=== PATIENT | male | born 1940 | race Caucasian/White ===

== ENCOUNTER 2019-03-19 09:57 | Observation (INO) | payer MEDICARE ==
[2019-03-19] MEDS ORDERED: Sodium Chloride 0.9% 10 ML Syringe FLUSH PRN (11:08)
[2019-03-19] MEDS ORDERED: Diltiazem 125 MG in Sodium Chloride 0.9% 100 ML IV SCH (11:15)
[2019-03-19] MEDS ORDERED: Sodium Chloride 0.9% 1,000 ML IV SCH (11:15)
[2019-03-19] MEDS ORDERED: Diltiazem 25 MG/5 ML SDV IVPUSH ONE (11:17)
[2019-03-19] MEDS ORDERED: Iopamidol 755 Mg/ML 75 ML Bottle IV ONE (12:56)
--- NOTE | 2019-03-19 12:58 | EDM.PDOC ---
ED HPI GENERAL MEDICAL PROBLEM - General Chief Complaint: Cardiovascular Problem Stated Complaint: short of breath, fatigue Time Seen by Provider: 03/19/19 10:10 Source of Information: Reports: Patient History Limitations: Reports: No Limitations - History of Present Illness INITIAL COMMENTS - FREE TEXT/NARRATIVE: patient an echo lab this morning and heart rate noted to be 150 by vtc technician. Sent here for further evaluation very pleasant 78-year-old male who presents with concern for fatigue and dyspnea on exertion as well as some slight shortness of breath over the past 3 weeks. He reports that his symptoms actually seemed to start around [place] with some shortness of breath on exertion, and he changed his filter in his cabin and found her to have a lot of mold in it. He states that after this he seemed to feel better for quite a while. 3 weeks ago he had an upper respiratory tract infection, took some [id number] medications and no symptoms seem to have resolved, however he is still felt very fatigued. Yesterday he was trying to mow his lawn and he was unable to continue, had to keep stopping to rest. he also notes new onset edema in his lower extremities over the past week. he was seen in the [facility] one week ago and his heart rate was noted to be "fast" he states in the 90s. He was started on Lasix 20 mg once per day at that time due to swelling in his legs. He tells me that no labs were drawn there. He was scheduled for an echocardiogram today and then was sent here when his rate was found to be elevated. Past medical history is significant for a cardiac bypass surgery 18 years ago. He has not seen a doctor in 5 years and just takes occasional indomethacin for gout, which seemed to be worse over the last week. He is a former smoker, but quit many years ago. Occasional social alcohol, no other drug use. He denies any other symptoms besides those noted above, no chest pain, no cough , no nausea, vomiting or diarrhea, no numbness or tingling in his extremities, no headache or changes in vision. - Related Data Allergies Allergy/AdvReac Type Severity Reaction Status Date / Time latex Allergy Hives Verified 03/19/19 10:04 Home Meds: Home Meds Furosemide 20 mg PO BID 03/19/19 [History] Indomethacin 50 mg PO DAILY PRN 03/19/19 [History] Past Medical History HEENT History: Reports: Other (See Below) Other HEENT History: states that he floaters at night. Cardiovascular History: Reports: Bypass, Other (See Below) Other Cardiovascular History: on lasix for about 1 1/2 week. Respiratory History: Reports: SOB, Other (See Below) Other Respiratory History: upon exertion since august of last year. 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 ED EXAM, GENERAL - Physical Exam Exam: See Below Free Text/Narrative:: general: Alert, very pleasant in no acute distress. head atraumatic. throat moist. Neck supple. Heart is tachycardic, no obvious murmur. Lungs have slightly decreased sounds in bases but no anne wheezes or crackles. Abdomen positive bowel sounds, soft and nontender. ?distended but hard to tell on first meeting. Peripheral pulses +2 in both the upper and lower extremity's. There is bilateral lower extremity edema. He has equal strength in his arms and legs bilaterally and his gait is normal. Skin has no obvious lesions or rashes. EKG INTERPRETATION Rhythm: A-Flutter ST-T: Normal Comparison: NA - No Prior EKG Course - Vital Signs Text/Narrative:: Initial EKG shows atrial flutter with 2-1 conduction, rate between 130 and 150 on the monitor. Patient is otherwise asymptomatic, with normal blood pressure. Will get labs. Cardizem drip ordered - rate came down after bolus. Likely will need admission for new onset aflutter. Last Recorded V/S: Last Vital Signs Temp 36.7 C 03/19/19 09:57 Pulse 96 03/19/19 11:36 Resp 18 03/19/19 11:36 BP 113/87 03/19/19 11:36 Pulse Ox 100 03/19/19 11:36 - Orders/Labs/Meds Orders: Active Orders 24 hr Category Date Time Status EKG Documentation Completion [RC] ASDIRECTED Care 03/19/19 10:52 Active Ang Chest [CT] Stat Exams 03/19/19 12:52 Taken Diltiazem 125 mg Med 03/19/19 11:15 Active Sodium Chloride 0.9% [Normal Saline] 100 ml IV TITRATE Sodium Chloride 0.9% [Normal Saline] 1,000 ml Med 03/19/19 11:15 Active IV ASDIRECTED Sodium Chloride 0.9% [Saline Flush] Med 03/19/19 11:08 Active 10 ml FLUSH ASDIRECTED PRN Saline Lock Insert [OM.PC] Routine Oth 03/19/19 11:08 Ordered EKG 12 Lead [EK] Routine Ther 03/19/19 09:50 Ordered Medication Orders Diltiazem HCl 125 mg/ Sodium (Chloride) 125 mls @ 5 mls/hr IV TITRATE GURDEEP; Protocol Last Admin: 03/19/19 11:32 Dose: 5 mg/hr, 5 mls/hr Sodium Chloride (Normal Saline) 1,000 mls @ 150 mls/hr IV ASDIRECTED GURDEEP Last Admin: 03/19/19 11:28 Dose: 150 mls/hr Sodium Chloride (Saline Flush) 10 ml FLUSH ASDIRECTED PRN PRN Reason: Keep Vein Open Labs: Laboratory Tests 03/19/19 03/19/19 03/19/19 Range/Units 10:15 10:15 10:15 WBC 9.1 (4.5-12.0) X10-3/uL RBC 4.77 (4.30-5.75) x10(6)uL Hgb 13.5 (13.5-17.8) g/dL Hct 39.4 (30.0-51.3) % MCV 82.6 (80-96) fL MCH 28.2 (27.7-33.6) pg MCHC 34.2 (32.2-35.4) g/dL RDW 14.4 (11.5-15.5) % Plt Count 145 (125-369) X10(3)uL MPV 9.2 (7.4-10.4) fL Neut % (Auto) 81.2 (46-82) % Lymph % (Auto) 11.2 L (13-37) % [place] % (Auto) 5.8 (4-12) % Eos % (Auto) 2 (1.0-5.0) % Baso % (Auto) 0 (0-2) % Neut # (Auto) 7.5 (1.6-8.3) # Lymph # (Auto) 1.0 (0.6-5.0) # [place] # (Auto) 0.5 (0.0-1.3) # Eos # (Auto) 0.1 (0.0-0.8) # Baso # (Auto) 0.0 (0.0-0.2) # Sodium 142 (135-145) mmol/L Potassium 4.6 (3.5-5.3) mmol/L Chloride 105 (100-110) mmol/L Carbon Dioxide 26 (21-32) mmol/L BUN 36 H (7-18) mg/dL Creatinine 1.5 H (0.70-1.30) mg/dL Est Cr Clr Drug Dosing 39.93 mL/min Estimated GFR (MDRD) 45 L (>60) BUN/Creatinine Ratio 24.0 H (9-20) Glucose 91 (80-116) mg/dL Calcium 9.2 (8.6-10.2) mg/dL Magnesium 2.0 (1.8-2.5) mg/dL Total Bilirubin 2.0 H (0.1-1.3) mg/dL AST 20 (5-25) IU/L ALT 24 (12-36) U/L Alkaline Phosphatase 68 (56-112) IU/L Troponin I < 0.017 L (<0.017-0.056) ng/mL Total Protein 7.0 (6.0-8.0) g/dL Albumin 3.6 (3.2-4.6) g/dL Globulin 3.4 g/dL Albumin/Globulin Ratio 1.1 Meds: Medications Generic Name Dose Route Start Last Admin Trade Name Freq PRN Reason Stop Dose Admin Diltiazem HCl 125 mg/ Sodium 125 mls @ 5 mls/hr 03/19/19 11:15 03/19/19 11:32 Chloride IV 5 mg/hr TITRATE GURDEEP 5 mls/hr Administration Protocol 5 MG/HR Sodium Chloride 1,000 mls @ 150 mls/hr 03/19/19 11:15 03/19/19 11:28 Normal Saline IV 150 mls/hr ASDIRECTED GURDEEP Administration Sodium Chloride 10 ml 03/19/19 11:08 Saline Flush FLUSH ASDIRECTED PRN Keep Vein Open Discontinued Medications Generic Name Dose Route Start Last Admin Trade Name [place] PRN Reason Stop Dose Admin Diltiazem HCl 10 mg 03/19/19 11:17 03/19/19 11:27 Diltiazem IVPUSH 03/19/19 11:18 10 mg ONETIME ONE Administration Iopamidol 75 ml 03/19/19 12:56 03/19/19 13:31 Isovue-370 (76%) IV 03/19/19 12:57 75 ml ASDIRECTED ONE Administration - Re-Assessments/Exams Free Text/Narrative Re-Assessment/Exam: labs reviewed, creatinine elevated at 1.5, no previous comparison. Discussed with hospitalist dr Chadwick, who accepts for admission. Call received from hydrometeorologist, ECHO this morning shows globally reduced function, EF 20%. + mitral regurgitation, tricuspid regurgitation, moderate pulmonary hypertension. Dr Chadwick updated, will get CT angiogram to r/o pulmonary embolism, and patient to transfer to floor. Free Text/Narrative Re-Assessment/Exam: Dr Marcial called regarding CT angiogram, no pulmonary embolism, enlarged, heart, interstitial edema, and abdominal ascites. Report to follow Departure - Departure Time of Disposition: 13:40 Disposition: Refer to Observation Clinical Impression: Atrial flutter, CHF (congestive heart failure) - Discharge Information *PRESCRIPTION DRUG MONITORING PROGRAM REVIEWED*: Not Applicable *COPY OF PRESCRIPTION DRUG MONITORING REPORT IN PATIENT ARCELIA: Not Applicable - My Orders Last 24 Hours: My Active Orders 03/19/19 09:50 EKG 12 Lead [EK] Routine 03/19/19 10:52 EKG Documentation Completion [RC] ASDIRECTED 03/19/19 11:08 Sodium Chloride 0.9% [Saline Flush] 10 ml FLUSH ASDIRECTED PRN Saline Lock Insert [OM.PC] Routine 03/19/19 11:15 Diltiazem 125 mg Sodium Chloride 0.9% [Normal Saline] 100 ml IV TITRATE Sodium Chloride 0.9% [Normal Saline] 1,000 ml IV ASDIRECTED 03/19/19 12:52 Ang Chest [CT] Stat - Assessment/Plan Last 24 Hours: My Active Orders 03/19/19 09:50 EKG 12 Lead [EK] Routine 03/19/19 10:52 EKG Documentation Completion [RC] ASDIRECTED 03/19/19 11:08 Sodium Chloride 0.9% [Saline Flush] 10 ml FLUSH ASDIRECTED PRN Saline Lock Insert [OM.PC] Routine 03/19/19 11:15 Diltiazem 125 mg Sodium Chloride 0.9% [Normal Saline] 100 ml IV TITRATE Sodium Chloride 0.9% [Normal Saline] 1,000 ml IV ASDIRECTED 03/19/19 12:52 Ang Chest [CT] Stat
--- NOTE | 2019-03-19 15:03 | PCM.HP ---
H&P History of Present Illness - General Date of Service: 03/19/19 Admit Problem/Dx: Admission Diagnosis/Problem Admission Diagnosis/Problem Atrial flutter with rapid ventricular response Source of Information: Patient History Limitations: Reports: No Limitations - History of Present Illness Initial Comments - Free Text/Narative: Patient was seen last week by [facility] for shortness of breath, peripheral edema. He was started on Lasix last week and set up for an Echo today. During his echocardiogram tech noted heart rate of 150s so he was sent to the ER. He was evaluated by Dr Stone and found to be in atrial flutter/ fibrillation on EKG, Echo report shows ejection fraction of 20%, moderate-to- severe mitral & tricuspid regurgitation along with pulmonary hypertension of 54 mmHG, Dr Stone ordered CT Angio to rule out pulmonary embolism and initial report showed enlarged heart, interstitial edema and abdominal ascites but no pulmonary embolism. He denies any loss of weight, actually gained 10 lbs; no night sweats, loss of appetite, abdominal pain, chest pain. No black or bloody stools. No jaundice. No hematuria or change in bladder habits. He had a CABG about 18 years ago at [facility] in [place]. He followed with a solar sales ambassador for a few years after that but then has been seeing his primary doctor since then. He usually sees Dr Marie or Caitlyn Rosas at [facility]. - Related Data Allergies/Adverse Reactions: Allergies Allergy/AdvReac Type Severity Reaction Status Date / Time latex Allergy Hives Verified 03/19/19 10:04 Home Medications: Home Meds Furosemide 20 mg PO BID 03/19/19 [History] Indomethacin 50 mg PO DAILY PRN 03/19/19 [History] Past Medical History HEENT History: Reports: Other (See Below) Other HEENT History: states that he floaters at night. Cardiovascular History: Reports: Bypass, Other (See Below) Other Cardiovascular History: on lasix for about 1 1/2 week. Respiratory History: Reports: SOB, Other (See Below) Other Respiratory History: upon exertion since august of last year. Musculoskeletal History: Reports: Gout Social & Family History - Family History Family Medical History: Noncontributory - Tobacco Use Smoking Status *Q: Former Smoker Used Tobacco, but Quit: Yes Month/Year Tobacco Last Used: 25 years ago Second Hand Smoke Exposure: No - Caffeine Use Caffeine Use: Reports: Coffee, Soda - Recreational Drug Use Recreational Drug Use: No H&P Review of Systems - Review of Systems: Review Of Systems: See Below General: Reports: No Symptoms Pulmonary: Denies: Shortness of Breath, Wheezing Cardiovascular: Reports: Palpitations, Edema. Denies: Chest Pain, Lightheadedness Gastrointestinal: Reports: Distension. Denies: Abdominal Pain, Black Stool, Bloody Stool, Constipation, Diarrhea, Decreased Appetite, Nausea, Vomiting Genitourinary: Denies: Dysuria, Pain, Incontinence, Hematuria, Retention Skin: Denies: Jaundice Hematologic/Lymphatic: Reports: Easy Bruising. Denies: Anemia, Easy Bleeding Exam - Exam Exam: See Below - Vital Signs Vital Signs: Last Vital Signs Temp 36.7 C 03/19/19 09:57 Pulse 96 03/19/19 11:36 Resp 18 03/19/19 11:36 BP 113/87 03/19/19 11:36 Pulse Ox 100 03/19/19 11:36 Weight: 90.718 kg - Exam General: Alert, Oriented, Cooperative HEENT: PERRLA, EOMI, Hearing Intact, Mucosa Moist & [place]. No: Scleral Icterus Neck: Supple, Trachea Midline Lungs: Clear to Auscultation, Normal Respiratory Effort Cardiovascular: Irregular Rhythm, Diastolic Murmur GI/Abdominal Exam: Normal Bowel Sounds, Soft, Non-Tender, Distended, Other ( unable to assess for organomegaly due to distention, tympanic on percussion). No: Guarding, Rigid, Rebound, Tender Extremities: Pedal Edema (2+) Peripheral Pulses: 2+: Posterior Tibial (L), Posterior Tibial (R), Dorsalis Pedis (L), Dorsalis Pedis (R) Skin: Warm, Dry, Rash (stasis dermatitis on BLE) - Patient Data Lab Results Last 24 hrs: Laboratory Results - last 24 hr 03/19/19 03/19/19 03/19/19 Range/Units 10:15 10:15 10:15 WBC 9.1 (4.5-12.0) X10-3/uL RBC 4.77 (4.30-5.75) x10(6)uL Hgb 13.5 (13.5-17.8) g/dL Hct 39.4 (30.0-51.3) % MCV 82.6 (80-96) fL MCH 28.2 (27.7-33.6) pg MCHC 34.2 (32.2-35.4) g/dL RDW 14.4 (11.5-15.5) % Plt Count 145 (125-369) X10(3)uL MPV 9.2 (7.4-10.4) fL Neut % (Auto) 81.2 (46-82) % Lymph % (Auto) 11.2 L (13-37) % [place] % (Auto) 5.8 (4-12) % Eos % (Auto) 2 (1.0-5.0) % Baso % (Auto) 0 (0-2) % Neut # (Auto) 7.5 (1.6-8.3) # Lymph # (Auto) 1.0 (0.6-5.0) # [place] # (Auto) 0.5 (0.0-1.3) # Eos # (Auto) 0.1 (0.0-0.8) # Baso # (Auto) 0.0 (0.0-0.2) # Sodium 142 (135-145) mmol/L Potassium 4.6 (3.5-5.3) mmol/L Chloride 105 (100-110) mmol/L Carbon Dioxide 26 (21-32) mmol/L BUN 36 H (7-18) mg/dL Creatinine 1.5 H (0.70-1.30) mg/dL Est Cr Clr Drug Dosing 39.93 mL/min Estimated GFR (MDRD) 45 L (>60) BUN/Creatinine Ratio 24.0 H (9-20) Glucose 91 (80-116) mg/dL Calcium 9.2 (8.6-10.2) mg/dL Magnesium 2.0 (1.8-2.5) mg/dL Total Bilirubin 2.0 H (0.1-1.3) mg/dL AST 20 (5-25) IU/L ALT 24 (12-36) U/L Alkaline Phosphatase 68 (56-112) IU/L Troponin I < 0.017 L (<0.017-0.056) ng/mL Total Protein 7.0 (6.0-8.0) g/dL Albumin 3.6 (3.2-4.6) g/dL Globulin 3.4 g/dL Albumin/Globulin Ratio 1.1 Result Diagrams: 03/19/19 10:15 03/19/19 10:15 Imaging Impressions Last 24 hrs: U/S report in scanned documents: showed EF of 20%, [id number] mitral & tricuspid regurgitation, pulmonary hypertension at 54 mmHg. CTA chest: enlarged heart, interstitial edema and abdominal ascites but no pulmonary emboli. CT abdomen/pelvis: pending. EKG INTERPRETATION EKG Date: 03/19/19 Time: 09:50 Rhythm: A-Flutter Rate (Beats/Min): 130 [place]: LAD-Left [place] Deviation P-Wave: Variable QRS: Normal ST-T: Depressed (V6) QT: Prolonged (518) Comparison: NA - No Prior EKG *Q Meaningful Use (ADM) - VTE *Q VTE Mechanical Contraindications *Q: Congestive Heart Failure - VTE Risk Assess *Q Each Risk Factor Represents 1 Point: Swollen Legs, Current, Congestive heart failure (CHF) Total Score 1 Point Risk Factors: 2 Each Risk Factor Represents 3 Points: Age 75 Years or Greater Total Score 3 Point Risk Factors: 3 Each Risk Factor Represents 5 Points: None Total Score 5 Point Risk Factors: 0 - Problem List (1) Atrial flutter SNOMED Code(s): 2359690 ICD Code: I48.92 - UNSPECIFIED ATRIAL FLUTTER Status: Acute Current Visit : Yes (2) CHF (congestive heart failure) SNOMED Code(s): 04156071 ICD Code: I50.9 - HEART FAILURE, UNSPECIFIED Status: Acute Current Visit : Yes (3) Ascites SNOMED Code(s): 048897644 ICD Code: R18.8 - OTHER ASCITES Status: Acute Current Visit: Yes (4) Pulmonary hypertension SNOMED Code(s): 24215268 ICD Code: I27.20 - PULMONARY HYPERTENSION, UNSPECIFIED Status: Acute Current Visit: Yes (5) Mitral regurgitation SNOMED Code(s): 50568604 ICD Code: I34.0 - NONRHEUMATIC MITRAL (VALVE) INSUFFICIENCY Status: Acute Current Visit: Yes (6) Tricuspid valve regurgitation Status: Acute Current Visit: Yes Problem List Initiated/Reviewed/Updated: Yes Orders Last 24hrs: Active Orders 24 hr Category Date Time Status Patient Status [ADT] Routine ADT 03/19/19 12:56 Active Cardiac Monitoring [RC] .As Directed Care 03/19/19 13:49 Active EKG Documentation Completion [RC] ASDIRECTED Care 03/19/19 10:52 Active Oxygen Therapy [RC] PRN Care 03/19/19 12:56 Active Up ad Pam [RC] ASDIRECTED Care 03/19/19 12:55 Active VTE/DVT Education [RC] Per Unit Routine Care 03/19/19 12:56 Active Vital Signs [RC] Q4H Care 03/19/19 12:56 Active Heart Healthy Diet [DIET] Diet 03/19/19 Breakfast Active Ang Chest [CT] Stat Exams 03/19/19 12:52 Taken CTA Abd Pelv w Cont [CT] Routine Exams 03/19/19 14:56 Ordered Diltiazem [Cardizem CD] Med 03/19/19 15:00 Ordered 120 mg PO DAILY Furosemide [Lasix] Med 03/19/19 21:00 Ordered 20 mg PO BID Sodium Chloride 0.9% [Normal Saline] 1,000 ml Med 03/19/19 11:15 Active IV ASDIRECTED Sodium Chloride 0.9% [Saline Flush] Med 03/19/19 11:08 Active 10 ml FLUSH ASDIRECTED PRN Saline Lock Insert [OM.PC] Routine Oth 03/19/19 11:08 Ordered Resuscitation Status Routine Resus Stat 03/19/19 12:55 Ordered EKG 12 Lead [EK] Routine Ther 03/19/19 09:50 Ordered Medication Orders Diltiazem HCl (Cardizem Cd) 120 mg PO DAILY GURDEEP Furosemide (Lasix) 20 mg PO BIDDIURETIC GURDEEP Sodium Chloride (Normal Saline) 1,000 mls @ 150 mls/hr IV ASDIRECTED GURDEEP Last Admin: 03/19/19 11:28 Dose: 150 mls/hr Sodium Chloride (Saline Flush) 10 ml FLUSH ASDIRECTED PRN PRN Reason: Keep Vein Open Assessment/Plan Comment:: 1. Admit for observation for atrial flutter. 2. Was started on Cardizem drip in ER, rate slowed into the 80s/90s so converted him to oral Cardizem CD 120 mg daily once he reached the floor. 3. CT abdomen/pelvis to evaluate abdominal ascites which are new, most likely secondary to his heart failure. 4. Severe CHF with ejection fraction of 20%, will refer to cardiology as outpatient for further assessment of ICD placement. Restarted Furosemide and will recheck labs in the am. Daily weights. 5. Lovenox 30 mg IV q24h DVT prophylaxis. 6. Full code status.
--- NOTE | 2019-03-19 15:05 | CT ---
INDICATION: Elevated heart rate, poor left ventricular function, question PE. COMPUTERIZED TOMOGRAPHY ANGIOGRAPHY OF THE CHEST WITH CONTRAST: Spiral 1.25 mm axial sections were obtained through the chest with 75 mL Isovue 370 at 3 mL/ second with sagittal and coronal reconstructions, 03/19/19 - no comparisons. Total exam DLP = 799.34 mGy-cm. Calcifications are noted in the brachiocephalic vessels, arch of the aorta, and extensively in coronary arteries. The heart appeared enlarged. No pericardial effusion was seen. Mediastinal lymphadenopathy is moderate and may be reactive to infection but should be correlated clinically. No mediastinal masses were identified. Small to moderate sized bilateral pleural effusions were noted. The effusion on the right is larger. Extensive abdominal ascites is noted. Calcifications are noted in the abdominal aorta, splenic, celiac, and superior mesenteric arteries. There is some minimal subpleural infiltration at both lung bases, right greater than left, which could represent very minimal pneumonia and/or fibrosis. Additionally, there appears to be some minimal pulmonary vascular congestion that is noted on the coronal images. No evidence of pulmonary emboli could be identified. No definite consolidating pneumonia was identified. IMPRESSION: 1. Findings suggest CHF with interstitial lung edema and bilateral pleural effusions. Minimal superimposed bibasilar pneumonia is difficult to exclude. 2. Prominent abdominal ascites. 3. ASHD with cardiomegaly. 4. ASD. 5. Mediastinal lymphadenopathy, which is moderate and nonspecific. 6. Post median sternotomy with findings compatible with CABG surgery. Report was called to Dr. Stone at 1353 hours on 03/19/19. [facility]
[2019-03-19] MEDS: Diltiazem 120 MG Cap.CD PO SCH (15:56)
--- NOTE | 2019-03-19 16:23 | CT ---
INDICATION: Abdominal ascites, new CHF. CT ABDOMEN AND PELVIS WITHOUT CONTRAST: Spiral 2.5 mm axial sections were obtained through the abdomen and pelvis with sagittal and coronal reconstructions - no contrast utilized, 03/19/19 - no comparison CT of the abdomen and pelvis. Total exam DLP = 1,460.02 mGy-cm. The liver appeared normal in density. Bilateral abdominal and pelvic ascites is noted. The gallbladder and appendix are absent, compatible with history of cholecystectomy and appendectomy. No intrahepatic ductal dilatation was seen. The common bile duct appeared to be normal in caliber. There is a moderate degree of fatty replacement of the pancreas. The spleen had a normal appearance. The adrenal glands appeared normal. Contrast is noted minimally in the kidneys and definitely in the collecting systems with CT urograms as visualized appearing normal. No definite renal mass was identified. There is some mild renal fascial thickening, suggesting renal cortical scarring of mild degree. There appears to be pseudo-diverticulation of the urinary bladder, likely due to obstruction at the level of the prostate, which is somewhat prominent and impinges on the floor of the bladder moderately. Numerous outpouchings are noted posteriorly at the posterior half of the urinary bladder. No ventral hernia was seen. There is increased density of the soft tissues, compatible with CHF and possibly representing anasarca. No definite retroperitoneal mass was seen. Retroperitoneal lymphadenopathy is minimal and nonspecific. Calcifications are noted in the abdominal aorta, splenic artery, superior mesenteric artery, renal arteries proximally, and iliac and femoral arteries. No evidence of aneurysmal dilatation of the aorta was seen. There is, however, noted moderate dilatation of the left common iliac artery with an appearance raising question of dissection, well visualized on coronal image #79 and on multiple axial images from #119 to #127. No evidence of free air or bowel obstruction was seen. Hypertrophic degenerative changes and disk disease are noted at L2 through S1 with vacuum disk phenomena at those levels, as well as hypertrophic degenerative changes off vertebral bodies mostly anteriorly but also posteriorly and laterally with some impingement on neural foramina suggested. No additional organomegaly or mass lesions were identified in the abdomen or pelvis. IMPRESSION: 1. Prominent abdominal and pelvic ascites. 2. 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 3. Appearance of multiple diverticula is seen in the posterior urinary bladder , which could be on the basis of pseudo-diverticulation with obstruction to bladder outflow at the level of the prostate - correlate clinically. 4. Degenerative changes and disk disease L2 through S1. 5. Post cholecystectomy. 6. Post appendectomy. 7. Mild renal cortical scarring. MTDD
[2019-03-19] MEDS ORDERED: Enoxaparin 30 MG/0.3 ML Syringe SUBCUT SCH (16:45)
[2019-03-19] MEDS: Furosemide 20 MG Tab PO SCH (18:15)
[2019-03-20] MEDS ORDERED: hydrOXYzine HCl 25 MG Tab PO PRN (00:55)
[2019-03-20] MEDS: Diltiazem 120 MG Cap.CD PO SCH (09:04)
[2019-03-20] MEDS: Furosemide 20 MG Tab PO SCH (09:05)
--- NOTE | 2019-03-20 10:52 | PCM.DCSUM1 ---
Discharge Summary - Hospital Course HPI Initial Comments: Patient was seen last week by [facility] for shortness of breath, peripheral edema. He was started on Lasix last week and set up for an Echo today. During his echocardiogram tech noted heart rate of 150s so he was sent to the ER. He was evaluated by Dr Stone and found to be in atrial flutter/ fibrillation on EKG, Echo report shows ejection fraction of 20%, moderate-to- severe mitral & tricuspid regurgitation along with pulmonary hypertension of 54 mmHG, Dr Stone ordered CT Angio to rule out pulmonary embolism and initial report showed enlarged heart, interstitial edema and abdominal ascites but no pulmonary embolism. He denies any loss of weight, actually gained 10 lbs; no night sweats, loss of appetite, abdominal pain, chest pain. No black or bloody stools. No jaundice. No hematuria or change in bladder habits. He had a CABG about 18 years ago at [facility] in [place]. He followed with a gusset ripper for a few years after that but then has been seeing his primary doctor since then. He usually sees Dr Marie or Caitlyn Rosas at [facility]. Diagnosis: Stroke: No - Discharge Data Discharge Date: 03/20/19 Discharge Disposition: Home, Self-Care 01 Condition: Stable - Discharge Diagnosis/Problem(s) (1) Atrial flutter SNOMED Code(s): 0221992 ICD Code: I48.92 - UNSPECIFIED ATRIAL FLUTTER Status: Acute Current Visit : Yes (2) CHF (congestive heart failure) SNOMED Code(s): 60503391 ICD Code: I50.9 - HEART FAILURE, UNSPECIFIED Status: Acute Current Visit : Yes Problem Details: EF 20% Qualifiers: Heart failure type: combined systolic and diastolic (3) Ascites SNOMED Code(s): 320043596 ICD Code: R18.8 - OTHER ASCITES Status: Acute Current Visit: Yes Problem Details: secondary to CHF Qualifiers: Ascites type: other type Qualified Code(s): R18.8 - Other ascites (4) Pulmonary hypertension SNOMED Code(s): 85617678 ICD Code: I27.20 - PULMONARY HYPERTENSION, UNSPECIFIED Status: Acute Current Visit: Yes (5) Mitral regurgitation SNOMED Code(s): 77300660 ICD Code: I34.0 - NONRHEUMATIC MITRAL (VALVE) INSUFFICIENCY Status: Acute Current Visit: Yes (6) Tricuspid valve regurgitation Status: Acute Current Visit: Yes - Patient Summary/Data Consults: Cardiology per Dr Marie Hospital Course: Patient was admitted to floor on Cardizem drip at 5 mg/hr, heart rate came down to the 80s. His blood pressure tolerated well. Was switched to Cardizem CD 120 mg daily and drip was discontinued. He maintained his heart rate in the 80s overnight, telemetry showed atrial fibrillation/flutter. CT angiogram showed no pulmonary embolism, interstitial edema, abdominal ascites and cardiomegaly. Echo had showed EF of 20% with [id number] tricuspid/mitral regurgitation. No vegetations. CT abdomen/pelvis showed bilateral abdominal/ pelvic ascites, no masses, calcification of aorta, chronic left iliac vein dissection. Patient had no pain or shortness of breath during hospital course. - Patient Instructions Diet: Heart Healthy Diet Fluid Restriction: 2000 mL Activity: As Tolerated Driving: Do Not Drive Showering/Bathing: May Shower Other/Special Instructions: Notify provider of: increased shortness of breath, chest pain or weight gain. - Discharge Plan *PRESCRIPTION DRUG MONITORING PROGRAM REVIEWED*: Not Applicable *COPY OF PRESCRIPTION DRUG MONITORING REPORT IN PATIENT ARCELIA: Not Applicable Prescriptions/Med Rec: Aspirin [Aspirin EC] 325 mg PO DAILY 30 Days #30 tablet. Diltiazem [Cardizem CD] 120 mg PO DAILY 30 Days #30 cap.cd Home Medications: Home Meds Furosemide 20 mg PO BID 03/19/19 [History] Indomethacin 50 mg PO DAILY PRN 03/19/19 [History] Aspirin [Aspirin EC] 325 mg PO DAILY 30 Days #30 tablet. 03/20/19 [Rx] Diltiazem [Cardizem CD] 120 mg PO DAILY 30 Days #30 cap.cd 03/20/19 [Rx] Oxygen Therapy Mode: Room Air Patient Handouts: Heart Failure, [id number], Fall Prevention in Hospitals, Adult, Living With Heart Failure, Venous Thromboembolism Prevention Forms: ED Department Discharge Referrals: Farhat Marie MD [Primary Care Provider] - - Discharge Summary/Plan Comment DC Time >30 min.: Yes - General Info Date of Service: 03/20/19 Subjective Update: Feeling well this morning, no issues overnight except had trouble sleeping so had some hydroxyzine which helped. No chest pain or shortness of breath. Discussed findings with his son Jairo via cell phone this morning along with patient. Will need to follow up with Dr Marie to get into cardiology. Most likely will need to get ICD placed. - Patient Data Vitals - Most Recent: Last Vital Signs Temp 36.9 C 03/20/19 09:00 Pulse 93 03/20/19 09:04 Resp 18 03/20/19 09:00 BP 112/75 03/20/19 09:04 Pulse Ox 98 03/20/19 09:00 Weight - Most Recent: 95.527 kg I&O - Last 24 hours: Intake & Output 03/19/19 03/20/19 03/20/19 22:59 06:59 14:59 Intake Total 200 Output Total 525 100 Balance -325 -100 Lab Results - Last 24 hrs: Laboratory Results - last 24 hr 03/19/19 03/20/19 03/20/19 Range/Units 10:15 06:15 06:15 WBC 8.9 (4.5-12.0) X10-3/uL RBC 4.57 (4.30-5.75) x10(6)uL Hgb 12.9 L (13.5-17.8) g/dL Hct 38.1 (30.0-51.3) % MCV 83.4 (80-96) fL MCH 28.2 (27.7-33.6) pg MCHC 33.8 (32.2-35.4) g/dL RDW 14.6 (11.5-15.5) % Plt Count 138 (125-369) X10(3)uL Sodium 142 143 (135-145) mmol/L Potassium 4.6 4.1 (3.5-5.3) mmol/L Chloride 105 107 (100-110) mmol/L Carbon Dioxide 26 25 (21-32) mmol/L BUN 36 H 35 H (7-18) mg/dL Creatinine 1.5 H 1.4 H (0.70-1.30) mg/dL Est Cr Clr Drug Dosing 39.93 42.78 mL/min Estimated GFR (MDRD) 45 L 49 L (>60) BUN/Creatinine Ratio 24.0 H 25.0 H (9-20) Glucose 91 97 (80-116) mg/dL Calcium 9.2 8.9 (8.6-10.2) mg/dL Magnesium 2.0 (1.8-2.5) mg/dL Total Bilirubin 2.0 H (0.1-1.3) mg/dL AST 20 (5-25) IU/L ALT 24 (12-36) U/L Alkaline Phosphatase 68 (56-112) IU/L Total Protein 7.0 (6.0-8.0) g/dL Albumin 3.6 (3.2-4.6) g/dL Globulin 3.4 g/dL Albumin/Globulin Ratio 1.1 Med Orders - Current: Current Medications Diltiazem HCl (Cardizem Cd) 120 mg PO DAILY GURDEEP Last Admin: 03/20/19 09:04 Dose: 120 mg Enoxaparin Sodium (Lovenox) 30 mg SUBCUT Q24H GURDEEP Last Admin: 03/19/19 17:32 Dose: 30 mg Furosemide (Lasix) 20 mg PO BIDDIURETIC GURDEEP Last Admin: 03/20/19 09:05 Dose: 20 mg Hydroxyzine HCl (Atarax) 25 mg PO BEDTIME PRN PRN Reason: sleep/anxiety Last Admin: 03/20/19 01:02 Dose: 25 mg Sodium Chloride (Normal Saline) 1,000 mls @ 150 mls/hr IV ASDIRECTED GURDEEP Last Admin: 03/19/19 11:28 Dose: 150 mls/hr Sodium Chloride (Saline Flush) 10 ml FLUSH ASDIRECTED PRN PRN Reason: Keep Vein Open Discontinued Medications Diltiazem HCl (Diltiazem) 10 mg IVPUSH ONETIME ONE Stop: 03/19/19 11:18 Last Admin: 03/19/19 11:27 Dose: 10 mg Diltiazem HCl 125 mg/ Sodium (Chloride) 125 mls @ 5 mls/hr IV TITRATE GURDEEP; Protocol Last Admin: 03/19/19 11:32 Dose: 5 mg/hr, 5 mls/hr Iopamidol (Isovue-370 (76%)) 75 ml IV ASDIRECTED ONE Stop: 03/19/19 12:57 Last Admin: 03/19/19 13:31 Dose: 75 ml - Exam General: Reports: Alert, Oriented Neck: Reports: Supple Lungs: Reports: Clear to Auscultation, Normal Respiratory Effort Cardiovascular: Reports: Irregular Rhythm GI/Abdominal Exam: Normal Bowel Sounds, Soft, Non-Tender, Distended Extremities: Pedal Edema (1+) *Q Meaningful Use (DIS) - VTE *Q VTE Mechanical Contraindications *Q: Congestive Heart Failure
[2019-03-20] MEDS ORDERED: hydrOXYzine HCl 25 MG Tab PO SCH (21:00)
== END 2019-03-20 11:10 | disposition home or self-care (01) ==
LOC: FB.ED 09:57 → FB.ICU 12:55
PROVIDERS: ADMIT Family Medicine; ATTEND Family Medicine
DX: I49.02 Ventricular flutter (principal); I11.0 Hypertensive heart disease with heart failure; I50.9 Heart failure, unspecified; I27.20 Pulmonary hypertension, unspecified; I34.0 Nonrheumatic mitral (valve) insufficiency; I07.1 Rheumatic tricuspid insufficiency; M10.9 Gout, unspecified; R18.8 Other ascites; Z79.82 Long term (current) use of aspirin; Z79.899 Other long term (current) drug therapy; Z91.040 Latex allergy status; Z87.891 Personal history of nicotine dependence; Z95.1 Presence of aortocoronary bypass graft
CPT/HCPCS: 36415; 71275; 74176; 80048; 80053; 83735; 84484; 85025; 85027; 93005; 93010; 93308; 96365; 96366; 96372; 96376; 99285; A9270; G0378; J1650; J3490; J7030; Q9967

== ENCOUNTER 2019-09-01 20:57 | Emergency (ER) | payer MEDICARE ==
--- NOTE | 2019-09-01 22:29 | EDM.PDOC ---
ED HPI GENERAL MEDICAL PROBLEM - General Chief Complaint: Lower Extremity Injury/Pain Stated Complaint: PAIN IN RIGHT LEG Time Seen by Provider: 09/01/19 22:00 Source of Information: Reports: Patient History Limitations: Reports: No Limitations - History of Present Illness INITIAL COMMENTS - FREE TEXT/NARRATIVE: 78 yo male with pain,swelling of the rt calf x 3 d. No trauma. Has a h/o osteoarthritis,afib and CHF. No sob or chest pain.No fever Treatments ENROLLMENT ELIGIBILITY REPRESENTATIVE: Reports: Other (see below) Other Treatments ENROLLMENT ELIGIBILITY REPRESENTATIVE: Elevation Right leg Pain Score (Numeric/FACES): 3 - Related Data Allergies Allergy/AdvReac Type Severity Reaction Status Date / Time latex Allergy Hives Verified 09/01/19 21:08 Home Meds: Home Meds Furosemide 20 mg PO BID 03/19/19 [History] Indomethacin 50 mg PO BID 03/19/19 [History] Apixaban [Eliquis] 2.5 mg PO BID 09/01/19 [History] allopurinoL [Zyloprim] 300 mg PO BID 09/01/19 [History] carvediloL [Carvedilol] 12.5 mg PO BIDMEALS 09/01/19 [History] Past Medical History HEENT History: Reports: Other (See Below) Other HEENT History: states that he floaters at night. Cardiovascular History: Reports: Afib, Bypass, Heart Failure, Hypertension Other Cardiovascular History: on lasix for about 1 1/2 week. Respiratory History: Reports: SOB, Other (See Below) Other Respiratory History: upon exertion since august of last year. Musculoskeletal History: Reports: Gout - Past Surgical History Cardiovascular Surgical History: Reports: Coronary Artery Bypass (18 years ago) Social & Family History - Family History Family Medical History: Noncontributory Neurological: Reports: CVA (mother) - Tobacco Use Smoking Status *Q: Former Smoker Used Tobacco, but Quit: Yes Month/Year Tobacco Last Used: 25 years ago - Caffeine Use Caffeine Use: Reports: Coffee, Soda - Recreational Drug Use Recreational Drug Use: No Review of Systems - Review of Systems Review Of Systems: Comprehensive ROS is negative, except as noted in HPI. ED EXAM, GENERAL - Physical Exam Exam: See Below Exam Limited By: No Limitations General Appearance: Alert Respiratory/Chest: No Respiratory Distress, Lungs Clear Cardiovascular: Normal Peripheral Pulses, Irregularly Irregular. No: Regular Rate, Rhythm, Tachycardia Back Exam: Normal Inspection Extremities: Pedal Edema, Leg Pain, Other (Tender popliteal fossa of rt leg,and tender calf). No: Narinder's Sign, Increased Warmth Psychiatric: Normal Affect Skin Exam: Warm Lymphatic: No Adenopathy Course - Vital Signs Last Recorded V/S: Last Vital Signs Temp 97.7 F 09/01/19 21:15 Pulse 63 09/01/19 21:35 Resp 16 09/01/19 21:35 BP 134/56 L 09/01/19 21:35 Pulse Ox 99 09/01/19 21:15 - Orders/Labs/Meds Orders: Active Orders 24 hr Category Date Time Status Extremity Non Vascular Rt [US] Stat Exams 09/01/19 21:34 Ordered Departure - Departure Time of Disposition: 22:27 Disposition: Home, Self-Care 01 Condition: Good Clinical Impression: Maxwell's cyst, ruptured - Discharge Information Instructions: Maxwell Cyst Referrals: Farhat Marie MD [Primary Care Provider] - (1-5days) Forms: ED Department Discharge Sepsis Event Note - Evaluation Sepsis Screening Result: No Definite Risk - Focused Exam Vital Signs: Vital Signs Temp Pulse Resp BP Pulse Ox 09/01/19 21:35 63 16 134/56 L 09/01/19 21:15 97.7 F 57 L 18 149/61 H 99 Date Exam was Performed: 09/01/19 Time Exam was Performed: 22:25 - Problem List & Annotations (1) Maxwell's cyst, ruptured SNOMED Code(s): 022034562 Code(s): M66.0 - RUPTURE OF POPLITEAL CYST Status: Acute Current Visit: Yes - Problem List Review Problem List Initiated/Reviewed/Updated: Yes - My Orders Last 24 Hours: My Active Orders 09/01/19 21:34 Extremity Non Vascular Rt [US] Stat - Assessment/Plan Last 24 Hours: My Active Orders 09/01/19 21:34 Extremity Non Vascular Rt [US] Stat Plan: US confirmed maxwell's cyst,about 10 cm. No DVT. Reassurance. Follow up prn, consider Ortho consult.
--- NOTE | 2019-09-02 16:19 | US ---
INDICATION: Question Maxwell cyst, pain behind right knee. ULTRASOUND RIGHT LOWER EXTREMITY NONVASCULAR: Multiple ultrasonic images of the right lower extremity revealed a 12.1 x 1.76 x 3.85 cm hypoechoic mass in the popliteal fossa compatible with a complicated Maxwell cyst, there being septations and echoes within this hypoechoic spindle-shaped mass. No interior blood flow was identified. Patent popliteal vein and artery noted. These compress with color flow within them. IMPRESSION: What appears to be a complicated Maxwell cyst is noted measuring 12.1 x 1.76 x 3.85 cm. MTDD
== END 2019-09-01 22:36 | disposition home or self-care (01) ==
LOC: FB.ED 20:57
DX: M66.0 Rupture of popliteal cyst (principal); I48.91 Unspecified atrial fibrillation; I11.0 Hypertensive heart disease with heart failure; I50.9 Heart failure, unspecified; M10.9 Gout, unspecified; Z95.1 Presence of aortocoronary bypass graft; Z87.891 Personal history of nicotine dependence; Z91.040 Latex allergy status; Z79.899 Other long term (current) drug therapy; Z79.01 Long term (current) use of anticoagulants
CPT/HCPCS: 76881-RT; 99282; 99283-25

== ENCOUNTER 2024-12-27 19:26 | Emergency (ER) | payer OTHER | END 2024-12-27 20:19 | disposition home or self-care (01) | LOC: FB.ED 19:26 | DX: K59.00 Constipation, unspecified (principal); I11.0 Hypertensive heart disease with heart failure; I50.9 Heart failure, unspecified; Z91.040 Latex allergy status; Z79.899 Other long term (current) drug therapy | CPT/HCPCS: 99283 ==